=== PATIENT | female | born 1960 | race American Indian/Alaskan Native ===

== ENCOUNTER 2017-01-03 03:28 | Emergency (ER) | payer BC ==
--- NOTE | 2017-01-03 04:08 | Cat Scan Report ---
FINAL REPORT EXAM: CT HEAD/BRAIN WO CON HISTORY: fall TECHNIQUE: Routine axial imaging was obtained of the brain without IV contrast FINDINGS: There is moderate generalized atrophy. There is no evidence of acute stroke or hemorrhage. The ventricular system is appropriate in size and is symmetric. The visualized sinuses are clear. The mastoid air cells are well pneumatized. There is no evidence of skull fracture or scalp injury. IMPRESSION: Moderate generalized atrophy. No evidence of acute stroke or hemorrhage.
[2017-01-03] MEDS ORDERED: XYLOCAINE 1% 20 mL INFILTRATI ONE (06:47)
[2017-01-03 07:37] LABS: Basophils % (Auto) 0.8 % (0.0-1.8); Eosinophils % (Auto) 3.8 % (0.0-4.3); Hematocrit 35.8 % (30.3-42.9); Mean Corpuscular HGB Conc 34 % (30-34); Mean Corpuscular Hemoglobin 32 pg (28-32); Mean Corpuscular Volume 95 fl (79-97); Platelet Count 289 K/mm3 (140-440); Red Blood Count 3.76 M/mm3 (3.65-5.03); Red Cell Distribution Width 13.1 % (13.2-15.2)
[2017-01-03 07:43] LABS: Alanine Aminotransferase 22 units/L (7-56); Albumin 3.8 g/dL (3.9-5); Alkaline Phosphatase 89 units/L (35-129); Anion Gap 17 mmol/L; BUN/Creatinine Ratio 30; Blood Urea Nitrogen 18 mg/dL (7-17); Calcium 9.6 mg/dL (8.4-10.2); Carbon Dioxide 26 mmol/L (22-30); Glucose 84 mg/dL (65-100); Potassium 4.8 mmol/L (3.6-5.0); Sodium 142 mmol/L (137-145); Total Protein 7.8 g/dL (6.3-8.2)
[2017-01-03 07:59] LABS: White Blood Count 5.6 K/mm3 (4.5-11.0)
[2017-01-03 08:12] LABS: Bilirubin,Direct < 0.2 mg/dL (0-0.2)
[2017-01-03 08:28] VITALS: BP 142/68
--- NOTE | 2017-01-03 08:30 | Emergency Department Report ---
ED General Adult HPI - General Chief complaint: Fall Stated complaint: FACIAL LAC Time Seen by Provider: 01/03/17 06:32 Source: EMS Mode of arrival: Stretcher Limitations: Altered Mental Status - History of Present Illness Initial comments: The patient experienced a fall at the longterm. She sustained a left forehead laceration. There is no reported loss of consciousness. However the transfer history simply states for alllaceration above the left eyebrow. The patient is awake and alert. She is extremely contracted. She is able to medicate and refers no other painful areas. She has history of schizophrenia and rheumatoid arthritis. -: unknown Location: face Radiation: non-radiation Quality: other (did not describe) Consistency: now resolved Improves with: none Worsens with: none Associated Symptoms: denies other symptoms - Related Data Home Medications Medication Instructions Recorded Confirmed Last Taken ALPRAZolam [Xanax TAB] 0.25 mg PO QDAY 09/17/14 09/17/14 1 Day Ago Acetaminophen [Non-Aspirin] 2 tab PO Q4HR PRN 09/17/14 09/17/14 1 Day Ago Cyproheptadine [Periactin] 4 mg PO BID 09/17/14 09/17/14 1 Day Ago Docusate Sodium [Colace] 100 mg PO BID 09/17/14 09/17/14 1 Day Ago Famotidine [Pepcid] 20 mg PO BID 09/17/14 09/17/14 1 Day Ago Folic Acid 1 mg PO QDAY 09/17/14 09/17/14 1 Day Ago Magnesium Hydroxide [Milk of 400 mg PO QDAY PRN 09/17/14 09/17/14 1 Day Ago Magnesia] Methotrexate(Dose Weekly Only) 2.5 mg PO QWEEK 09/17/14 09/17/14 1 Day Ago Multivitamin/Iron/Folic Acid 1 each PO QDAY 09/17/14 09/17/14 1 Day Ago [Daily Vit Formula + Iron Tab] Sertraline [Zoloft] 100 mg PO QDAY 09/17/14 09/17/14 1 Day Ago Sulindac 200 mg PO BID 09/17/14 09/17/14 1 Day Ago oxyCODONE /ACETAMINOPHEN [Percocet 1 tab PO Q6HR PRN 09/17/14 09/17/14 1 Day Ago 5/325 mg] Allergies Allergy/AdvReac Type Severity Reaction Status Date / Time No Known Allergies Allergy Unverified 09/17/14 08:41 ED Review of Systems ROS: Stated complaint: FACIAL LAC Other details as noted in HPI Comment: All other systems reviewed and negative (as obtainable) ED Past Medical Hx - Past Medical History Previous Medical History?: Yes Hx Dementia: Yes Additional medical history: Schizophrenia and rheumatoid arthritis - Surgical History Past Surgical History?: Yes - Social History Smoking Status: Never Smoker Substance Use Type: None - Medications Home Medications: Home Medications Medication Instructions Recorded Confirmed Last Taken Type ALPRAZolam [Xanax TAB] 0.25 mg PO QDAY 09/17/14 09/17/14 1 Day Ago History Acetaminophen [Non-Aspirin] 2 tab PO Q4HR PRN 09/17/14 09/17/14 1 Day Ago History Cyproheptadine [Periactin] 4 mg PO BID 09/17/14 09/17/14 1 Day Ago History Docusate Sodium [Colace] 100 mg PO BID 09/17/14 09/17/14 1 Day Ago History Famotidine [Pepcid] 20 mg PO BID 09/17/14 09/17/14 1 Day Ago History Folic Acid 1 mg PO QDAY 09/17/14 09/17/14 1 Day Ago History Magnesium Hydroxide [Milk of 400 mg PO QDAY PRN 09/17/14 09/17/14 1 Day Ago History Magnesia] Methotrexate(Dose Weekly Only) 2.5 mg PO QWEEK 09/17/14 09/17/14 1 Day Ago History Multivitamin/Iron/Folic Acid 1 each PO QDAY 09/17/14 09/17/14 1 Day Ago History [Daily Vit Formula + Iron Tab] Sertraline [Zoloft] 100 mg PO QDAY 09/17/14 09/17/14 1 Day Ago History Sulindac 200 mg PO BID 09/17/14 09/17/14 1 Day Ago History oxyCODONE /ACETAMINOPHEN [Percocet 1 tab PO Q6HR PRN 09/17/14 09/17/14 1 Day Ago History 5/325 mg] ED Physical Exam - General Limitations: Physical Limitation General appearance: alert, in no apparent distress - Head Head exam: Present: normocephalic - Eye Eye exam: Present: normal appearance, PERRL, EOMI, other (left forehead laceration of approximately 5 cm into subcutaneous fat only) - ENT ENT exam: Present: normal exam, mucous membranes moist - Neck Neck exam: Present: normal inspection. Absent: tenderness - Respiratory Respiratory exam: Present: normal lung sounds bilaterally. Absent: respiratory distress - Cardiovascular Cardiovascular Exam: Present: regular rate, normal rhythm. Absent: systolic murmur, diastolic murmur, rubs, gallop - GI/Abdominal GI/Abdominal exam: Present: soft, normal bowel sounds. Absent: distended, tenderness, guarding, rebound - Extremities Exam Extremities exam: Present: other (both legs severely contracted flexed at the hip and knee) - Back Exam Back exam: Present: normal inspection - Neurological Exam Neurological exam: Present: alert, CN II-XII intact (as testable). Absent: motor sensory deficit (an acute motor/sensory deficit is not suspected) - Psychiatric Psychiatric exam: Present: normal affect, normal mood - Skin Skin exam: Present: warm, dry, intact, normal color. Absent: rash ED Course Vital Signs 01/03/17 01/03/17 01/03/17 03:20 03:30 03:50 Temperature 97.9 F Pulse Rate 78 Respiratory 16 Rate Blood Pressure 142/78 O2 Sat by Pulse 100 100 99 Oximetry 01/03/17 01/03/17 01/03/17 04:10 04:16 04:30 Temperature Pulse Rate Respiratory Rate Blood Pressure O2 Sat by Pulse 100 99 98 Oximetry 01/03/17 01/03/17 01/03/17 04:46 05:00 05:16 Temperature Pulse Rate Respiratory Rate Blood Pressure 48/21 118/73 O2 Sat by Pulse 100 100 99 Oximetry 01/03/17 01/03/17 01/03/17 05:30 05:46 06:00 Temperature Pulse Rate Respiratory Rate Blood Pressure 118/73 118/73 118/73 O2 Sat by Pulse 99 100 100 Oximetry 01/03/17 01/03/17 06:11 06:12 Temperature Pulse Rate 72 72 Respiratory 16 Rate Blood Pressure O2 Sat by Pulse Oximetry - Reevaluation(s) Reevaluation #1: Patient had a negative CT. She remained comfortable in emergency department. We checked some basic laboratory testing that was normal a 12-lead EKG showed no evidence of dysrhythmia. The patient was sutured and return to the longterm setting. 01/03/17 08:29 - Laceration /Wound Repair Face Wound Location: face Wound Length (cm): 5 Wound's Depth, Shape: superficial (into subcutaneous) Wound Explored: clean Irrigated w/ Saline (ccs): 5 Betadine Prep?: Yes Anesthesia: 1% Lidocaine Suture Size/Type: 5:0 Number of Sutures: 4 Layer Closure?: No Progress: Good approximation and hemostasis. Well-tolerated. ED Medical Decision Making - Lab Data Result diagrams: 01/03/17 06:35 01/03/17 06:35 - EKG Data -: EKG Interpreted by Me EKG shows normal: sinus rhythm, axis, intervals, QRS complexes, ST-T waves - EKG Data Interpretation: other (RSR V1 and V2 and poor R-wave progression until V4 LDH is suspected motion artifact and nonspecific tracing) Critical care attestation.: If time is entered above; I have spent that time in minutes in the direct care of this critically ill patient, excluding procedure time. ED Disposition Clinical Impression: Laceration of skin of forehead without complication Qualifiers: Encounter type: initial encounter Qualified Code(s): S01.81XA - Laceration without foreign body of other part of head, initial encounter Rheumatoid arthritis Qualifiers: Rheumatoid arthritis location: unspecified site Rheumatoid factor presence: unspecified presence Qualified Code(s): M06.9 - Rheumatoid arthritis, unspecified Disposition: DC-01 TO HOME OR SELFCARE Is pt being admited?: No Does the pt Need Aspirin: No Condition: Stable Instructions: Laceration (ED), Minor Head Injury (ED) Additional Instructions: Sutures may be removed in one week. Daily wound care. Return any acute change or problems. Referrals: PRIMARY CARE, [Primary Care Provider] - 3-5 Days Time of Disposition: 08:33
[2017-01-03 08:49] LABS: Bacteria,Urine 2+ /HPF (Negative); Bilirubin,Urine NEG (Negative); Blood,Urine MOD (Negative); Ketones,Urine NEG (Negative); Leukocyte Esterase,Urine NEG (Negative); Mucus,Urine FEW /HPF; Nitrite,Urine NEG (Negative); Protein,Urine <15 mg/dL mg/dL (Negative); Urobilinogen,Urine < 2.0 mg/dL (<2.0)
== END 2017-01-03 08:50 | disposition home or self-care (01) ==
LOC: ED 03:28
DX: S01.81XA Laceration without foreign body of other part of head, initial encounter (principal); M60.9 Myositis, unspecified; F20.9 Schizophrenia, unspecified; W19.XXXA Unspecified fall, initial encounter; Y93.89 Activity, other specified; Y92.89 Other specified places as the place of occurrence of the external cause; Y99.8 Other external cause status
CPT/HCPCS: 36415; 70450; 80048; 80074; 81001; 85025; 93005; 93010

== ENCOUNTER 2018-11-23 11:41 | Emergency (ER) | payer MEDICARE ==
[2018-11-23 12:07] VITALS: BP 116/53
--- NOTE | 2018-11-23 13:23 | XRay Report ---
EXAMINATION: Abdominal radiograph for gastric tube placement, 11/23/2018 CLINICAL INFORMATION: Confirm gastric tube placement COMPARISON: Abdominal radiograph, 11/05/2018 FINDINGS: The first image demonstrates a gastric tube overlying the mid abdomen. The second image dem onstrates contrast opacification of the stomach and proximal small bowel. Bowel gas pattern appears grossly nonobstructive. IMPRESSION: Gastric tube is present with contrast material opacifying the stomach and proximal small bowel. Signer Name: Isis Mckeon MD Signed: 11/23/2018 1:19 PM Workstation Name: [id number]
[2018-11-23] MEDS ORDERED: TYLENOL PO ONE (13:27)
--- NOTE | 2018-11-23 13:31 | Emergency Department Report ---
HPI - General Chief Complaint: Tube Replacement Time Seen by Provider: 11/23/18 12:03 - HPI HPI: 58 year-old female presents to the emergency department via EMS from her [facility] at the [facility] for confirmation of placement of a G-tube. Patient has a history of dementia with some behavioral disturbances, schizophrenia, rheumatoid arthritis. Overall she has had a G-tube in place for medication and feeding for a few years but this last G-tube was in place for only 2 or 3 months. She pulled it out last night and another G-tube was placed at the facility. However they did not feel confident in their placement and Center in for a confirmatory study. The patient's daughter is currently here at bedside. The primary care physician is listed as a Dr. Workman. ED Past Medical Hx - Past Medical History Hx Hypertension: Yes Hx Congestive Heart Failure: No Hx Diabetes: No Hx Arthritis: Yes (rheumatoid arthritis) Hx Psychiatric Treatment: Yes (schizophrenia) Hx Asthma: No Hx COPD: No Hx Dementia: Yes Additional medical history: Anemia, dysphagia (oropharynx phase), rheumatoid arthritis - Social History Smoking Status: Never Smoker - Medications Home Medications: Home Medications Medication Instructions Recorded Confirmed Last Taken Type Acetaminophen [Non-Aspirin] 2 tab PO Q4HR PRN 09/17/14 11/06/17 1 Day Ago History ~09/16/14 Cyproheptadine [Periactin] 4 mg PO BID 09/17/14 11/06/17 1 Day Ago History ~09/16/14 Docusate Sodium [Colace CAP] 100 mg PO BID 09/17/14 11/06/17 1 Day Ago History ~09/16/14 Famotidine [Pepcid] 20 mg PO BID 09/17/14 11/06/17 1 Day Ago History ~09/16/14 Folic Acid 1 mg PO QDAY 09/17/14 11/06/17 1 Day Ago History ~09/16/14 Magnesium Hydroxide [Milk of 400 mg PO QDAY PRN 09/17/14 11/06/17 1 Day Ago History Magnesia] ~09/16/14 Multivitamin/Iron/Folic Acid 1 each PO QDAY 09/17/14 11/06/17 1 Day Ago History [Daily Vitamin Formula-Iron Tab] ~09/16/14 Sertraline [Zoloft] 100 mg PO QDAY 09/17/14 11/06/17 1 Day Ago History ~09/16/14 Sulindac 200 mg PO BID 09/17/14 11/06/17 1 Day Ago History ~09/16/14 metHOTREXate(DOSE WEEKLY ONLY) 2.5 mg PO QWEEK 09/17/14 11/06/17 1 Day Ago History [metHOTREXate (DOSE WEEKLY ONLY)] ~09/16/14 ALPRAZolam [Xanax TAB] 0.25 mg PO QDAY #7 tablet 11/08/17 Unknown Rx oxyCODONE /ACETAMINOPHEN [Percocet 1 tab PO Q6HR PRN #10 tablet 11/08/17 Unknown Rx 5/325 mg] ED Review of Systems ROS: Stated complaint: G TUBE Other details as noted in HPI Comment: Unobtainable due to pts medical conditions Physical Exam - Physical Exam Vital Signs: Vital Signs 11/23/18 12:06 Temperature 99.3 F Pulse Rate 108 H Respiratory 16 Rate Blood Pressure 116/53 [Left] O2 Sat by Pulse 100 Oximetry Physical Exam: GENERAL: The patient is well-developed well-nourished. HENT: Normocephalic. Atraumatic. Patient has moist mucous membranes. EYES: Extraocular motions are intact. NECK: Supple. Trachea is midline. CHEST/LUNGS: Clear to auscultation. There is no respiratory distress noted. HEART/CARDIOVASCULAR: Regular. There is mild tachycardia. There is no murmur. ABDOMEN: Abdomen is soft. Patient has normal bowel sounds. There is no abdominal distention. Triple port G-tube in place. No surrounding erythema. No purulent discharge seen. SKIN: Skin is warm and dry. NEURO: Patient is awake but nonverbal. Not following commands. MUSCULOSKELETAL: There is no tenderness. Contracted lower extremities. ED Course Vital Signs 11/23/18 12:06 Temperature 99.3 F Pulse Rate 108 H Respiratory 16 Rate Blood Pressure 116/53 [Left] O2 Sat by Pulse 100 Oximetry ED Medical Decision Making - Radiology Data Radiology results: image reviewed interpreted by me: G-tube x-ray study shows appropriate placement of the G-tube without any extravasation. - Medical Decision Making The patient was sent in by the [facility] facility for confirmation of the G- tube was placed sometime between last night and this morning. X-ray G-tube study shows appropriate placement of the G-tube. Patient was transferred back to the [facility] facility in stable condition. Critical Care Time: No Critical care attestation.: If time is entered above; I have spent that time in minutes in the direct care of this critically ill patient, excluding procedure time. ED Disposition Clinical Impression: Gastrostomy tube in place Disposition: TO HOME OR SELFCARE Is pt being admited?: No Condition: Stable Instructions: How to Use and Care for Your PEG Tube (ED) Additional Instructions: The G-tube appears to be appropriately placed and ready for use. Please follow- up with the primary care physician. Return to the emergency department with any concerns or acute distress. Referrals: PCP, Your [Other] - 2-3 Days Time of Disposition: 13:31
== END 2018-11-23 14:33 | disposition home or self-care (01) ==
LOC: ED 11:41
DX: K94.23 Gastrostomy malfunction (principal); I10 Essential (primary) hypertension; M19.90 Unspecified osteoarthritis, unspecified site; F20.9 Schizophrenia, unspecified; F03.90 Unspecified dementia, unspecified severity, without behavioral disturbance, psychotic disturbance, mood disturbance, and anxiety
CPT/HCPCS: 74018; 99283; Q9967